=== PATIENT | male | born 1940 | race Hispanic/Latino ===

== ENCOUNTER 2020-03-19 22:34 | Inpatient (IN) | payer OTHER, MEDICARE ==
[~2020-03-19] VITALS: Ht 167.6 cm; Wt 56.6 kg
[~2020-03-19 22:34] MED LIST: ATOR20TA65 PO
[2020-03-19 23:35] LABS: ABG BASE EXCESS -2.6 mmol/L (-2.0-3.0); ABG HCO3 26.8 mmol/L (21.0-28.0); ABG OXYGEN SATURATION 76.8 % (95.0-99.0); ABG PCO2 67 mmHg (35-48)
[2020-03-19 23:36] LABS: BASOPHILS % (AUTO) 0.4 % (0.0-5.0); EOSINOPHILS % (AUTO) 7.4 % (0.0-8.0); HEMATOCRIT 38.4 % (42-54); LYMPHOCYTES % (AUTO) 15.6 % (21.0-51.0); MEAN CORPUSCULAR HEMOGLOBIN 28.7 pg (27.0-33.0); MEAN CORPUSCULAR VOLUME 89.7 fL (79-99); NEUTROPHILS % (AUTO) 70.4 % (40.0-77.0); PLATELET COUNT (AUTO) 182 K/uL (130-400); RED BLOOD CELL COUNT(AUTO) 4.28 MIL/uL (4.50-6.20); RED CELL DISTRIBUTION WIDTH 14.4 % (11.0-15.5); WHITE BLOOD COUNT (AUTO) 8.4 K/uL (4.8-10.8)
[2020-03-19 23:50] LABS: INR 0.95 (0.85-1.15); PARTIAL THROMBOPLASTIN TIME 26.4 SEC (26.3-35.5); PROTHROMBIN TIME 10.3 SEC (9.6-11.6)
[2020-03-20] VITALS (14 sets, daily range): BP systolic 101–140; BP diastolic 54–77
[2020-03-20] LABS: ALBUMIN 3.8 g/dL (3.5-5.0); BILIRUBIN,TOTAL 0.3 mg/dL (0.2-1.0)
[2020-03-20 00:05] LABS: APPEARANCE,URINE Clear (CLEAR); BILIRUBIN,URINE Negative (NEGATIVE); COLOR,URINE Yellow (YELLOW); GLUCOSE, URINE (UA) Negative (NEGATIVE); KETONES,URINE Negative (NEGATIVE); LEUKOCYTE ESTERASE ,URINE Small (NEGATIVE); NITRATE,URINE Negative (NEGATIVE); OCCULT BLOOD,URINE Large (NEGATIVE); PROTEIN,URINE POS 2+ mg/dL (NEGATIVE)
[2020-03-20] MEDS ORDERED: IOHEXOL-350 75 ML VIAL IV ONE (00:05)
[2020-03-20 00:06] LABS: POTASSIUM 4.5 mmol/L (3.5-5.1)
[2020-03-20 00:10] LABS: B-TYPE NATRIURETIC PEPTIDE 27 pg/mL (0-100)
[2020-03-20 00:20] LABS: BACTERIA,URINE None Seen /HPF (None Seen); SQUAMOUS EPITHELIAL CELL,UR Rare /HPF (0-2); WBC,URINE 0-1 /HPF (0-1)
[2020-03-20] MEDS ORDERED: LIDOCAINE HCL 1% 20 ML VIAL ONE (00:59)
[2020-03-20] MEDS ORDERED: ONDANSETRON HCL 4 MG/2 ML VIAL ONE (02:17)
[2020-03-20] MEDS ORDERED: MORPHINE SULFATE 2 MG/ML 1ML SYG ONE (02:18)
[2020-03-20] MEDS ORDERED: ALBUTEROL INHALER 90MCG/INH IH ONE (02:42)
[2020-03-20 04:07] LABS: BASOPHILS % (AUTO) 0.3 % (0.0-5.0); EOSINOPHILS % (AUTO) 5.8 % (0.0-8.0); HEMATOCRIT 36.7 % (42-54); LYMPHOCYTES % (AUTO) 21.6 % (21.0-51.0); MEAN CORPUSCULAR HEMOGLOBIN 28.7 pg (27.0-33.0); MEAN CORPUSCULAR HGB CONC 31.6 g/dL (32.0-36.0); MEAN CORPUSCULAR VOLUME 90.8 fL (79-99); MONOCYTES % (AUTO) 7.7 % (3.0-13.0); NEUTROPHILS % (AUTO) 64.5 % (40.0-77.0); PLATELET COUNT (AUTO) 184 K/uL (130-400); RED BLOOD CELL COUNT(AUTO) 4.04 MIL/uL (4.50-6.20); RED CELL DISTRIBUTION WIDTH 14.2 % (11.0-15.5); WHITE BLOOD COUNT (AUTO) 7.3 K/uL (4.8-10.8)
[2020-03-20] MEDS: ASPIRIN 325 MG TABLET PO SCH ×2 (04:15→08:15)
[2020-03-20 04:29] LABS: POTASSIUM 4.6 mmol/L (3.5-5.1)
[2020-03-20] MEDS ORDERED: ASPIRIN 325 MG TABLET ONE (04:41)
[2020-03-20] MEDS ORDERED: ALBU90AE2 IH (04:57)
[2020-03-20] MEDS ORDERED: ONDANSETRON HCL 4 MG/2 ML VIAL IVP PRN (05:45)
[2020-03-20] MEDS ORDERED: IPRATROPIUM/ALBUTEROL SULFATE 3 ML SOLUTION IH PRN ×2 (05:45→14:00)
[2020-03-20] MEDS ORDERED: HYDROCODONE/ACETAMINOPHEN 5/325 MG TAB PO PRN (05:45)
[2020-03-20] MEDS ORDERED: ACETAMINOPHEN 325 MG TAB PO PRN (05:45)
[2020-03-20] MEDS: FAMOTIDINE 20MG TAB 20 MG TAB PO SCH ×2 (08:13→20:23)
--- NOTE | 2020-03-20 10:00 | NUR ---
NOTIFICATION NOTIFIED FACUNDO DAO THAT DR. ALVA OBSERVED A SMALL PNEUMOTHORAX ON THE LEFT SIDE FROM AN XRAY. ALSO, NOTIFIED HER OF A TROPONIN LAB RESULT OF 0.85.
[2020-03-20] MEDS ORDERED: SODIUM CHLORIDE 0.9% 500ML 500 ML IV SCH (11:14)
--- NOTE | 2020-03-20 12:30 | NUR ---
DCP CM met with pt currently going to procedure. Called son on facesheet. Spoke to Maria Fernanda Clemente discussed dc plans. Pt is independent prior to admission, lives at home w/a long time girlfriend. Denies any equipments/services. Feels safe to go back home, girlfriend/son able to assist with transportation and needs as necessary. DC plan to home once stable. CM to cont to follow up. Addendum: 03/20/20 at 1231 by MALENA CR LVN CM Amended: Links added.
[2020-03-20] MEDS ORDERED: HEPARIN SODIUM 1000UNIT/ML 10ML VIAL ONE (12:34)
[2020-03-20] MEDS ORDERED: IOHEXOL 350 MG/ML 100ML INFUS..BTL IV ONE (12:34)
[2020-03-20] MEDS ORDERED: IOHEXOL-350 50ML VIAL IV ONE (12:34)
[2020-03-20] MEDS ORDERED: LIDOCAINE HCL 2% 20ML ONE (12:34)
[2020-03-20] MEDS ORDERED: SODIUM BICARB 50MEQ 50ML VIAL ONE (12:34)
[2020-03-20] MEDS ORDERED: NITROGLYCERIN 2 MG/VIAL VIAL IV ONE (12:35)
[2020-03-20] MEDS ORDERED: NICARDIPINE HCL 25 MG/10 ML ML IV ONE (12:45)
[2020-03-20] MEDS ORDERED: MIDAZOLAM HCL 1 MG/ML 2ML VIAL ONE (13:31)
[2020-03-20] MEDS ORDERED: FENTANYL CITRATE PF 50 MCG/1 ML 2ML VIAL ONE (13:31)
[2020-03-20] MEDS ORDERED: HYDROMORPHONE HCL 0.5 MG/0.5 ML ML IVP PRN (14:00)
[2020-03-20] MEDS ORDERED: HYDRALAZINE HCL 20 MG/ML VIAL IV PRN (14:00)
--- NOTE | 2020-03-20 14:16 | NUR ---
RD NOTIFICATION - TRIGGER Pt admitted with Pneumothorax. Low BMI for age (21.0). Pt tolerating Heart Healthy diet order with no report of GI distress. Good PO intake (100%). Recommend to continue current diet order. Recommend Ensure QD. RD to continue to monitor. Please notify as additional nutrition concerns arise. Thank you. Addendum: 03/20/20 at [address] RD Amended: Links added.
[2020-03-20] MEDS ORDERED: CLOPIDOGREL BISULFATE 300 MG TAB PO SCH (15:00)
[2020-03-20] MEDS ORDERED: SODIUM CHLORIDE 0.9% 10 ML VIAL IVP PRN (15:00)
[2020-03-20] MEDS: FUROSEMIDE 10 MG/ML 4ML VIAL IV SCH (15:07)
--- NOTE | 2020-03-20 19:50 | NUR ---
RADIAL BAND REMOVAL FOLLOWED PROTOCOL FOR REMOVAL OF RADIAL BAND, TOOK 2ML OF AIR FROM BAND EVERY 15 MINUTES WATCHING FOR ANY BLEEDING, STARTING AT APPROX 1500 HOURS, NO BLEEDING OBSERVED. REMOVED BAND AT APPROX 1645 HOURS, NO BLEEDING OBSERVED, PLACED STERILE GAUZE DRESSING AND SECURED WITH OPSITE. PATIENT TOLERATED WITHOUT INCIDENT.
[2020-03-20] MEDS: METOPROLOL TARTRATE 25 MG TAB PO SCH (20:23)
[2020-03-20] MEDS: ATORVASTATIN CALCIUM 40 MG TABLET PO SCH (20:23)
[2020-03-20] MEDS: METHYLPREDNISOLONE SOD SUCC 40MG/ML 1ML IVP SCH (20:23)
[2020-03-21] MEDS: FUROSEMIDE 10 MG/ML 4ML VIAL IV SCH ×2 (02:28→13:24)
[2020-03-21 04:00] VITALS: BP 103/52
[2020-03-21 04:03] LABS: HEMATOCRIT 37.9 % (42-54); MEAN CORPUSCULAR HEMOGLOBIN 28.9 pg (27.0-33.0); MEAN CORPUSCULAR HGB CONC 32.5 g/dL (32.0-36.0); RED BLOOD CELL COUNT(AUTO) 4.26 MIL/uL (4.50-6.20); RED CELL DISTRIBUTION WIDTH 14.3 % (11.0-15.5); WHITE BLOOD COUNT (AUTO) 6.1 K/uL (4.8-10.8)
[2020-03-21 04:26] LABS: CREATININE 1.1 mg/dL (0.5-1.5); POTASSIUM 4.1 mmol/L (3.5-5.1)
[2020-03-21 07:37] VITALS: BP 106/46
[2020-03-21] MEDS: METOPROLOL TARTRATE 25 MG TAB PO SCH ×2 (09:00→20:53)
[2020-03-21] MEDS: CLOPIDOGREL BISULFATE 75 MG TAB PO SCH (09:21)
[2020-03-21] MEDS: FAMOTIDINE 20MG TAB 20 MG TAB PO SCH ×2 (09:21→20:53)
[2020-03-21] MEDS: METHYLPREDNISOLONE SOD SUCC 40MG/ML 1ML IVP SCH ×2 (09:21→20:53)
[2020-03-21 10:59] VITALS: BP 124/59
--- NOTE | 2020-03-21 16:04 | NUR ---
CHEST TUBE PLACED ON WATER SEAL
[2020-03-21 16:30] VITALS: BP 132/76
--- NOTE | 2020-03-21 18:50 | NUR ---
NO PNEUMOTHORAX SEEN IN CHEST XRAY. LEFT CHEST TUBE REMOVED WITH NO COMPLICATIONS. DRESSING APPLIED. REPEAT CHEST XRAY ORDERED
[2020-03-21 19:56] VITALS: BP 141/63
--- NOTE | 2020-03-21 20:00 | NUR ---
CHEST TUBE REMOVED PRIOR TO CHANGE OF SHIFT, PATIENT DENIES ANY SOB OR ANY OTHER RESPIRATORY ISSUES. LEFT POSTERIOR RIB CAGE DRESSING DRY AND INTACT. Addendum: 03/22/20 at 0201 by OKSANA CHERRY RN RN Amended: Links added.
[2020-03-21] MEDS: ATORVASTATIN CALCIUM 40 MG TABLET PO SCH (20:52)
[2020-03-21 23:34] VITALS: BP 109/67
[2020-03-22] MEDS: FUROSEMIDE 10 MG/ML 4ML VIAL IV SCH ×2 (03:05→14:44)
[2020-03-22 04:06] VITALS: BP 122/70
[2020-03-22 07:00] VITALS: BP 140/63
[2020-03-22] MEDS: METHYLPREDNISOLONE SOD SUCC 40MG/ML 1ML IVP SCH (10:04)
[2020-03-22] MEDS: CLOPIDOGREL BISULFATE 75 MG TAB PO SCH (10:05)
[2020-03-22] MEDS: FAMOTIDINE 20MG TAB 20 MG TAB PO SCH (10:05)
[2020-03-22] MEDS: METOPROLOL TARTRATE 25 MG TAB PO SCH (10:05)
[2020-03-22 11:00] VITALS: BP 111/59
[2020-03-22 15:00] VITALS: BP 108/73
--- NOTE | 2020-03-22 16:30 | NUR ---
DISCHARGE INSTRUCTIONS/INFORMATION GIVEN TO PATIENT. TEACH BACK METHOD UTILIZED TO EDUCATE PATIENT ABOUT DIET, NEW MEDS PRESCRIBED, S/S TO MONITOR FOR, WHEN TO CALL MD,AND F/U APPOINTMENTS. PIV REMOVED. TIP WAS INTACT. TELE REMOVED AND RETURNED. ALL BELONGINGS WERE PACKED.
== END 2020-03-22 16:45 | disposition home or self-care (01) | DRG 281 ==
LOC: EDH 22:34 → EDHIP 03-20 02:12 → 4BH 03-20 03:31
PROVIDERS: ADMIT Internal Medicine; ATTEND Internal Medicine
PROC: B2151ZZ Fluoroscopy of Left Heart using Low Osmolar Contrast (ICD-10-PCS; principal; 2020-03-20)
PROC: B2111ZZ Fluoroscopy of Multiple Coronary Arteries using Low Osmolar Contrast (ICD-10-PCS; 2020-03-20)
PROC: 4A023N7 Measurement of Cardiac Sampling and Pressure, Left Heart, Percutaneous Approach (ICD-10-PCS; 2020-03-20)
PROC: 0W9B30Z Drainage of Left Pleural Cavity with Drainage Device, Percutaneous Approach (ICD-10-PCS; 2020-03-20)
DX: I21.4 Non-ST elevation (NSTEMI) myocardial infarction (principal); J93.83 Other pneumothorax; E78.5 Hyperlipidemia, unspecified; R09.02 Hypoxemia; J44.9 Chronic obstructive pulmonary disease, unspecified; F17.210 Nicotine dependence, cigarettes, uncomplicated; I20.8 Other forms of angina pectoris; Z86.11 Personal history of tuberculosis; Z79.82 Long term (current) use of aspirin; Z79.02 Long term (current) use of antithrombotics/antiplatelets; Z79.899 Other long term (current) drug therapy
CPT/HCPCS: 36415; 36600; 71045; 71275; 80048; 80053; 81001; 82550; 82803; 83880; 84484; 85025; 85027; 85610; 85730; 93005; 93458; 94664; 99156; 99157; 99291; G0378; J1644; J1940; J2250; J2405; J2920; J3010; J3490; Q9967